=== PATIENT | male | born 1985 | race Two or more races ===

== ENCOUNTER 2020-05-16 15:40 | Outpatient (REF) | payer BC, SELFPAY ==
--- NOTE | 2020-05-16 15:41 | XR_ITS ---
EXAMINATION: XR KNEE, RIGHT CLINICAL INFORMATION: Right knee pain. COMPARISON: None TECHNIQUE: Two views of the right knee. FINDINGS: Bones and soft tissues are normal. No fracture or joint effusion. Alignment is anatomic. Joint spaces are well maintained. No abnormal soft tissue calcification. IMPRESSION: Unremarkable right knee.
== END 2020-05-16 15:41 | disposition home or self-care (01) ==
LOC: HO.XRAY 15:40
PROVIDERS: Visit Provider Internal Medicine
DX: M25.561 Pain in right knee (principal)
CPT/HCPCS: 73560

== ENCOUNTER 2020-06-13 11:10 | Outpatient (REF) | payer SELFPAY | END 2020-06-13 11:11 | disposition home or self-care (01) | LOC: HO.WFDLDS 11:10 | PROVIDERS: Visit Provider Internal Medicine | DX: Z20.828 Contact with and (suspected) exposure to other viral communicable diseases (principal) | CPT/HCPCS: U0003 ==

== ENCOUNTER → 2020-06-28 13:49 | Outpatient (BNVA) | payer BC, SELFPAY | PROVIDERS: PCP Internal Medicine; Referring Provider Internal Medicine; Visit Provider Orthopaedic Surgery | DX: Z76.89 Persons encountering health services in other specified circumstances (principal) ==